=== PATIENT | female | born 1935 | race Hispanic/Latino ===

== ENCOUNTER 2018-10-24 14:58 | Emergency (ER) | payer MEDICARE ==
[2018-10-24] MEDS ORDERED: IBUPROFEN 600 MG TABLET ONE (15:41)
== END 2018-10-24 17:30 | disposition home or self-care (01) ==
LOC: EDH 14:58
DX: S20.222A Contusion of left back wall of thorax, initial encounter (principal); E11.9 Type 2 diabetes mellitus without complications; I10 Essential (primary) hypertension; E78.5 Hyperlipidemia, unspecified; I25.10 Atherosclerotic heart disease of native coronary artery without angina pectoris; Z90.710 Acquired absence of both cervix and uterus; W01.0XXA Fall on same level from slipping, tripping and stumbling without subsequent striking against object, initial encounter; Y93.E1 Activity, personal bathing and showering; Y92.098 Other place in other non-institutional residence as the place of occurrence of the external cause; Y99.8 Other external cause status
CPT/HCPCS: 71101

== ENCOUNTER 2019-05-10 19:55 | Observation (INO) | payer MEDICARE ==
[~2019-05-10] VITALS: Ht 152.4 cm; Wt 68.0 kg
[2019-05-10] MEDS ORDERED: ACETAMINOPHEN-CODEINE 300/30MG TAB ONE (20:47)
[2019-05-10 21:19] LABS: ALBUMIN 2.1 g/dL (3.5-5.0); BILIRUBIN,TOTAL 0.3 mg/dL (0.2-1.0); CREATININE 2.9 mg/dL (0.5-1.5); POTASSIUM 4.1 mmol/L (3.5-5.1); TOTAL PROTEIN, SERUM 6.8 g/dL (6.0-8.3)
[2019-05-10 21:44] LABS: BASOPHILS % (AUTO) 0.6 % (0.0-5.0); EOSINOPHILS % (AUTO) 1.6 % (0.0-8.0); HEMATOCRIT 31.6 % (36-48); LYMPHOCYTES % (AUTO) 27.9 % (21.0-51.0); MEAN CORPUSCULAR HEMOGLOBIN 32.6 pg (27.0-33.0); MEAN CORPUSCULAR HGB CONC 33.6 g/dL (32.0-36.0); MEAN CORPUSCULAR VOLUME 96.9 fL (79-99); MONOCYTES % (AUTO) 11.2 % (3.0-13.0); NEUTROPHILS % (AUTO) 58.7 % (40.0-77.0); PLATELET COUNT (AUTO) 182 K/uL (130-400); RED BLOOD CELL COUNT(AUTO) 3.26 MIL/uL (4.00-5.50); RED CELL DISTRIBUTION WIDTH 14.9 % (11.0-15.5); WHITE BLOOD COUNT (AUTO) 6.6 K/uL (4.8-10.8)
[2019-05-10 22:18] LABS: APPEARANCE,URINE Clear (CLEAR); BILIRUBIN,URINE Negative (NEGATIVE); COLOR,URINE Yellow (YELLOW); GLUCOSE, URINE (UA) Negative (NEGATIVE); KETONES,URINE Negative (NEGATIVE); LEUKOCYTE ESTERASE ,URINE Trace (NEGATIVE); NITRATE,URINE Negative (NEGATIVE); OCCULT BLOOD,URINE Negative (NEGATIVE); PH,URINE 6.5 (5.0-8.0); PROTEIN,URINE Negative (NEGATIVE); UROBILINOGEN,URINE 0.2 mg/dL (0.2-1.0)
[2019-05-10 22:45] LABS: BACTERIA,URINE None Seen /HPF (None Seen); MUCUS,URINE Few LPF (None Seen); RBC,URINE None Seen /HPF (0-1); SQUAMOUS EPITHELIAL CELL,UR Rare /HPF (0-2); WBC,URINE 0-1 /HPF (0-1)
[2019-05-10] MEDS ORDERED: SODIUM CHLORIDE 0.9% 1000ML 1,000 ML IV ONE (22:49)
[2019-05-10] MEDS ORDERED: NITROGLYCERIN 0.4 MG SL TAB SL ONE (23:01)
[2019-05-10] MEDS ORDERED: FAMOTIDINE/PF 20 MG/2 ML VIAL IV ONE (23:38)
[2019-05-11] MEDS: SODIUM CHLORIDE 0.9% 1000ML 1,000 ML IV SCH ×2 (00:17→06:45)
[2019-05-11] MEDS ORDERED: ACETAMINOPHEN 325 MG TAB PO PRN ×2 (00:30)
[2019-05-11] MEDS ORDERED: ONDANSETRON HCL 4 MG/2 ML VIAL IV PRN (00:30)
[2019-05-11] MEDS ORDERED: LACTULOSE 20 GM/30 ML UDCUP PO PRN (00:30)
[2019-05-11] MEDS ORDERED: MORPHINE SULFATE 2 MG/ML 1ML SYG IV PRN (00:30)
[2019-05-11] MEDS ORDERED: NITROGLYCERIN 0.4 MG SL TAB SL PRN (00:30)
[2019-05-11] MEDS ORDERED: HYDRALAZINE HCL 20 MG/ML VIAL IV PRN (00:30)
[2019-05-11 03:30] VITALS: BP 138/73
[2019-05-11] MEDS ORDERED: FAMO40TA7 PO (04:14)
[2019-05-11] MEDS ORDERED: METF-446 PO (04:14)
[2019-05-11] MEDS ORDERED: CITA-106 PO (04:14)
[2019-05-11] MEDS ORDERED: LEVO50TA11 PO (04:15)
[2019-05-11] MEDS ORDERED: SIMV20TA6 PO (04:18)
[2019-05-11] MEDS ORDERED: PIOG30TA70 PO (04:18)
[2019-05-11] MEDS ORDERED: OLME1TAB44 PO (04:18)
[2019-05-11 06:17] LABS: BASOPHILS % (AUTO) 0.4 % (0.0-5.0); EOSINOPHILS % (AUTO) 0.4 % (0.0-8.0); HEMATOCRIT 28.1 % (36-48); LYMPHOCYTES % (AUTO) 22.3 % (21.0-51.0); MEAN CORPUSCULAR HEMOGLOBIN 32.9 pg (27.0-33.0); MEAN CORPUSCULAR HGB CONC 33.5 g/dL (32.0-36.0); MEAN CORPUSCULAR VOLUME 98.2 fL (79-99); MONOCYTES % (AUTO) 10.6 % (3.0-13.0); NEUTROPHILS % (AUTO) 66.3 % (40.0-77.0); NUCLEATED RED BLOOD CELLS 0.1 % (0.0-0.19); PLATELET COUNT (AUTO) 150 K/uL (130-400); RED BLOOD CELL COUNT(AUTO) 2.86 MIL/uL (4.00-5.50); RED CELL DISTRIBUTION WIDTH 14.4 % (11.0-15.5)
[2019-05-11] MEDS ORDERED: LEVOTHYROXINE 50 MCG TABLET PO SCH (06:30)
[2019-05-11 06:31] LABS: CREATININE 1.2 mg/dL (0.5-1.5); POTASSIUM 4.6 mmol/L (3.5-5.1)
[2019-05-11] MEDS: INSULIN HUMULIN R 100 UNIT/ML 3ML SQ SCH ×3 (06:34→16:30)
[2019-05-11 08:00] VITALS: BP 138/59
[2019-05-11] MEDS ORDERED: ENOXAPARIN SODIUM 30 MG/0.3 ML SQ SCH (09:00)
[2019-05-11] MEDS ORDERED: LOSARTAN 100 MG TABLET PO SCH (09:00)
[2019-05-11] MEDS ORDERED: CITALOPRAM 20 MG TABLET PO SCH (09:00)
[2019-05-11] MEDS ORDERED: HYDROCHLOROTHIAZIDE 25 MG TABLET PO SCH (09:00)
[2019-05-11] MEDS ORDERED: PIOGLITAZONE HCL 30 MG TAB PO SCH (09:00)
[2019-05-11] MEDS ORDERED: ASPIRIN 81MG TAB.CHEW PO SCH (09:00)
[2019-05-11] MEDS ORDERED: METOPROLOL TARTRATE 25 MG TAB PO SCH (09:00)
[2019-05-11] MEDS ORDERED: FAMOTIDINE 20MG TAB 20 MG TAB PO SCH (09:00)
--- NOTE | 2019-05-11 10:00 | NUR ---
Dr Castillo here to see patient; he looked at pt's xray film, he stated that she has a very minor fx on her right tibia, that she should wear a knee immobilizer in place for treatment and follow up with him in a week, weight bearing as tolerated; i applied knee immobilizer to pt's right knee, she tolerated it well and have instructed pt and family at bedside on its use. they all stated understanding.
[2019-05-11] MEDS ORDERED: BRINOS OD (10:03)
[2019-05-11] MEDS ORDERED: COMB5OS OD (10:03)
[2019-05-11] MEDS ORDERED: LATA7.5D OP (10:03)
[2019-05-11 11:57] VITALS: BP 112/46
[2019-05-11] MEDS ORDERED: BRINZOLAMIDE 1% 10ML DROPS.SUSP OD SCH (12:00)
[2019-05-11 16:00] VITALS: BP 130/53
[2019-05-11] MEDS ORDERED: LATANOPROST 2.5 ML DROPS OP SCH (17:00)
--- NOTE | 2019-05-11 17:10 | NUR ---
D/C PLAN CM spoke to pt regarding d/c planning. pt lives with daughter named Janelle. Family at bedside. Pt has provider that assists in care. Pt has cane and walker at home. CM advised family if wanting new walker, pt will need to obtain order from PCP. Verbalized understanding and states pt will f/u with PCP on Monday. No other questions or concerns verbalized. Plan to home. Addendum: 05/11/19 at 1711 by CORINA NGUYEN Amended: Links added.
--- NOTE | 2019-05-11 18:30 | NUR ---
pt and family stated understanding of all d/c instructions on after care for chest pain and tibia fx, pt's cardiac enzyme workup was normal and ecg normal; slight fx of tibia, pt given knee immobilizer to wear and told to follow up with dr Castillo. iv access removed and tele pack removed;
[2019-05-11] MEDS ORDERED: ATORVASTATIN CALCIUM 20 MG TABLET PO SCH (21:00)
[2019-05-12] MEDS ORDERED: TIMOLOL OD SCH (09:00)
[2019-05-12] MEDS ORDERED: BRIMONIDINE TARTRATE OD SCH (09:00)
== END 2019-05-11 19:00 | disposition home or self-care (01) ==
LOC: EDH 19:55 → EDHIP 05-11 00:17 → 4BH 05-11 03:20
PROVIDERS: ADMIT Hospitalist; ATTEND Hospitalist
DX: M25.461 Effusion, right knee (principal); R07.89 Other chest pain; N17.9 Acute kidney failure, unspecified; I10 Essential (primary) hypertension; E11.9 Type 2 diabetes mellitus without complications; E44.0 Moderate protein-calorie malnutrition; R11.10 Vomiting, unspecified; E78.5 Hyperlipidemia, unspecified; E03.9 Hypothyroidism, unspecified; F32.9 Major depressive disorder, single episode, unspecified; I25.10 Atherosclerotic heart disease of native coronary artery without angina pectoris; D64.9 Anemia, unspecified; Z90.49 Acquired absence of other specified parts of digestive tract; Z87.891 Personal history of nicotine dependence; Z90.710 Acquired absence of both cervix and uterus; Z79.84 Long term (current) use of oral hypoglycemic drugs; Z79.899 Other long term (current) drug therapy; W01.0XXA Fall on same level from slipping, tripping and stumbling without subsequent striking against object, initial encounter; Y93.89 Activity, other specified; Y92.000 Kitchen of unspecified non-institutional (private) residence as the place of occurrence of the external cause
CPT/HCPCS: 36415 ×2; 70450; 72125; 73562; 73700; 80048; 80053; 81001; 82948 ×4; 84484 ×2; 85025 ×2; 93005 ×2; 96360; 96361; 96372; 99284; G0378 ×19; J1650; J3490; J7030 ×2

== ENCOUNTER 2020-04-19 05:23 | Inpatient (IN) | payer MEDICARE ==
[~2020-04-19] VITALS: Ht 157.5 cm; Wt 63.7 kg
[~2020-04-19 05:23] MED LIST: BRINOS OD; CITA-106 PO; COMB5OS OD; FAMO40TA7 PO; LATA7.5D OP; LEVO50TA11 PO; METF-446 PO; OLME1TAB86 PO; PIOG30TA70 PO; SIMV-43 PO
[2020-04-19] MEDS ORDERED: DIAZEPAM 2 MG TAB ONE (05:49)
[2020-04-19] MEDS ORDERED: KETOROLAC TROMETHAMINE 15MG/ML ONE (05:49)
[2020-04-19] MEDS ORDERED: ASPIRIN 325 MG TABLET ONE (05:49)
[2020-04-19 05:58] LABS: BASOPHILS % (AUTO) 0.2 % (0.0-5.0); HEMATOCRIT 37.9 % (36-48); LYMPHOCYTES % (AUTO) 6.1 % (21.0-51.0); MEAN CORPUSCULAR HEMOGLOBIN 31.8 pg (27.0-33.0); MEAN CORPUSCULAR HGB CONC 33.8 g/dL (32.0-36.0); MEAN CORPUSCULAR VOLUME 94.3 fL (79-99); NEUTROPHILS % (AUTO) 88.6 % (40.0-77.0); PLATELET COUNT (AUTO) 240 K/uL (130-400); RED BLOOD CELL COUNT(AUTO) 4.02 MIL/uL (4.00-5.50); RED CELL DISTRIBUTION WIDTH 11.9 % (11.0-15.5); WHITE BLOOD COUNT (AUTO) 21.8 K/uL (4.8-10.8)
[2020-04-19 06:07] LABS: POTASSIUM 4.4 mmol/L (3.5-5.1)
[2020-04-19 06:12] LABS: ALBUMIN 4.3 g/dL (3.5-5.0); BILIRUBIN,TOTAL 0.3 mg/dL (0.2-1.0); TOTAL PROTEIN, SERUM 8.3 g/dL (6.0-8.3)
[2020-04-19 06:37] LABS: INR 0.92 (0.85-1.15); PARTIAL THROMBOPLASTIN TIME 21.7 SEC (26.3-35.5)
[2020-04-19] MEDS ORDERED: ZOSYN 3.375GM+NS 50ML 50 ML IV ONE ×2 (06:53→16:07)
[2020-04-19 07:12] LABS: APPEARANCE,URINE TURBID (CLEAR); BILIRUBIN,URINE NEGATIVE (NEGATIVE); COLOR,URINE YELLOW (YELLOW); GLUCOSE, URINE (UA) NEGATIVE (NEGATIVE); KETONES,URINE 5 mg/dL (NEGATIVE); LEUKOCYTE ESTERASE ,URINE TRACE (NEGATIVE); NITRATE,URINE NEGATIVE (NEGATIVE); OCCULT BLOOD,URINE TRACE-INTACT (NEGATIVE); PROTEIN,URINE NEGATIVE (NEGATIVE); UROBILINOGEN,URINE 0.2 mg/dL (0.2-1.0)
[2020-04-19] MEDS ORDERED: ONDANSETRON HCL 4 MG/2 ML VIAL IV PRN (07:15)
[2020-04-19] MEDS ORDERED: CEFTRIAXONE SODIUM 1 GM IV SCH (07:15)
[2020-04-19] MEDS ORDERED: ACETAMINOPHEN 325 MG TAB PO PRN ×2 (07:15)
[2020-04-19] MEDS ORDERED: MORPHINE SULFATE 2 MG/ML 1ML SYG IV PRN (07:15)
[2020-04-19] MEDS: SODIUM CHLORIDE 0.9% 1000ML 1,000 ML IV SCH ×2 (07:15→19:52)
[2020-04-19] MEDS ORDERED: NITROGLYCERIN 0.4 MG SL TAB SL PRN (07:15)
[2020-04-19 07:18] LABS: BACTERIA,URINE Many /HPF (None Seen); RBC,URINE None Seen /HPF (0-1); WBC,URINE 0-1 /HPF (0-1)
[2020-04-19] MEDS ORDERED: ONDANSETRON HCL 4 MG/2 ML VIAL ONE (10:54)
[2020-04-19] MEDS ORDERED: MAG HYDROX/AL HYDROX/SIMETH ES 30 ML SUSP UDCUP ONE (12:20)
[2020-04-19] MEDS ORDERED: PANTOPRAZOLE 40 MG/VIAL ONE (12:20)
[2020-04-19] MEDS: BENZONATATE 100 MG CAPSULE PO SCH ×2 (14:00→19:52)
[2020-04-19] MEDS: ZOSYN 3.375GM+NS 50ML 50 ML IV SCH ×2 (15:15→23:07)
--- NOTE | 2020-04-19 17:35 | NUR ---
RECEIVED FROM ED VIA STRETCHER ACCOMPANIED BY Irvin PENNINGTON RN. PT. AAOX3, RESP.'S EVEN AND UNLABORED. DENIES ANY CURRENT SOB, DENIES ANY CURRENT PAIN. ORIENTED TO ROOM AND SURROUNDINGS. CALL LIGHT WITHIN REACH, VERBALIZED ABILITY TO USE. BED LOW, SIDE RAILS UP X3.
[2020-04-19] MEDS: ENOXAPARIN SODIUM 40 MG/0.4 ML SYRINGE SQ SCH (17:50)
[2020-04-19] MEDS ORDERED: MAG HYDROX/AL HYDROX/SIMETH ES 30 ML SUSP UDCUP PO SCH (18:15)
--- NOTE | 2020-04-19 19:10 | NUR ---
DR. SANDRA MADE AWARE OF CONSULT; NO NEW ORDERS RECEIVED.
[2020-04-19 20:07] VITALS: BP 122/58
[2020-04-20] VITALS (7 sets, daily range): BP systolic 140–157; BP diastolic 47–71
[2020-04-20 06:10] LABS: BILIRUBIN,TOTAL 0.4 mg/dL (0.2-1.0); CREATININE 2.2 mg/dL (0.5-1.5); CRP QUANTITATIVE 18.8 mg/L (0.00-9.0); POTASSIUM 3.9 mmol/L (3.5-5.1); TOTAL PROTEIN, SERUM 6.8 g/dL (6.0-8.3)
[2020-04-20] MEDS: ZOSYN 3.375GM+NS 50ML 50 ML IV SCH ×3 (06:13→23:41)
[2020-04-20 07:08] LABS: BASOPHILS % (AUTO) 0.5 % (0.0-5.0); HEMATOCRIT 32.7 % (36-48); LYMPHOCYTES % (AUTO) 15.2 % (21.0-51.0); MEAN CORPUSCULAR HEMOGLOBIN 31.7 pg (27.0-33.0); MEAN CORPUSCULAR HGB CONC 32.7 g/dL (32.0-36.0); MEAN CORPUSCULAR VOLUME 96.7 fL (79-99); MONOCYTES % (AUTO) 8.6 % (3.0-13.0); NEUTROPHILS % (AUTO) 73.9 % (40.0-77.0); PLATELET COUNT (AUTO) 188 K/uL (130-400); RED BLOOD CELL COUNT(AUTO) 3.38 MIL/uL (4.00-5.50); RED CELL DISTRIBUTION WIDTH 12.4 % (11.0-15.5); WHITE BLOOD COUNT (AUTO) 10.6 K/uL (4.8-10.8)
[2020-04-20] MEDS: ENOXAPARIN SODIUM 40 MG/0.4 ML SYRINGE SQ SCH (08:25)
[2020-04-20] MEDS: BENZONATATE 100 MG CAPSULE PO SCH ×3 (08:25→19:57)
[2020-04-20] MEDS: PANTOPRAZOLE SODIUM 40 MG TABLET.DR PO SCH (08:25)
[2020-04-20] MEDS: SODIUM CHLORIDE 0.9% 1000ML 1,000 ML IV SCH ×2 (08:26→19:57)
[2020-04-20] MEDS: TIMOLOL MALEATE 0.5% 5 ML BOTTLE OD SCH (09:00)
[2020-04-20] MEDS: BRIMONIDINE TARTRATE 0.2% 5 ML BOTTLE OD SCH (09:00)
[2020-04-20] MEDS: AMLODIPINE BESYLATE 5 MG TAB PO SCH (10:11)
[2020-04-20] MEDS: LEVOTHYROXINE 50 MCG TABLET PO SCH (10:11)
[2020-04-20] MEDS: INSULIN HUMULIN R 100 UNIT/ML 3ML SQ SCH ×3 (11:30→19:57)
[2020-04-20] MEDS: DORZOLAMIDE HCL 2% 10ML DROPS OD SCH (12:00)
--- NOTE | 2020-04-20 14:25 | NUR ---
DC PLAN PATIENT LIVES WITH DAUGHTER. INDEPENDENT ABLE TO PERFORM ADL'S. PATIENT HAS NO SERVICES. DME BEDSIDE COMMODE. PLAN TO DC WITH DAUGHTER TO HOME. PHARMACY ON [address]. Addendum: 04/20/20 at 1427 by CAROLIN GODINEZ RN CM Amended: Links added.
[2020-04-21 04:49] LABS: BASOPHILS % (AUTO) 0.5 % (0.0-5.0); EOSINOPHILS % (AUTO) 2.3 % (0.0-8.0); HEMATOCRIT 31.1 % (36-48); LYMPHOCYTES % (AUTO) 20.7 % (21.0-51.0); MEAN CORPUSCULAR HEMOGLOBIN 32.2 pg (27.0-33.0); MEAN CORPUSCULAR HGB CONC 33.4 g/dL (32.0-36.0); MEAN CORPUSCULAR VOLUME 96.3 fL (79-99); MONOCYTES % (AUTO) 8.6 % (3.0-13.0); NEUTROPHILS % (AUTO) 67.3 % (40.0-77.0); PLATELET COUNT (AUTO) 180 K/uL (130-400); RED BLOOD CELL COUNT(AUTO) 3.23 MIL/uL (4.00-5.50); RED CELL DISTRIBUTION WIDTH 12.2 % (11.0-15.5); WHITE BLOOD COUNT (AUTO) 8.2 K/uL (4.8-10.8)
[2020-04-21 04:54] VITALS: BP 145/75
[2020-04-21] MEDS: INSULIN HUMULIN R 100 UNIT/ML 3ML SQ SCH ×3 (04:58→20:31)
[2020-04-21 05:17] LABS: ALANINE AMINOTRANSFERASE 48 U/L (12-78); ALBUMIN 2.8 g/dL (3.5-5.0); ASPARTATE AMINOTRANSFERASE 79 U/L (10-37); BILIRUBIN,TOTAL 0.4 mg/dL (0.2-1.0); CARBON DIOXIDE 30 mmol/L (21-32); CHLORIDE 107 mmol/L (101-111); CREATININE 1.8 mg/dL (0.5-1.5); GLOMERULAR FILTR. RATE CALC 29 mL/min (>60); GLUCOSE,RANDOM 82 mg/dL (70-105); LIPASE 410 U/L (114-286); POTASSIUM 3.9 mmol/L (3.5-5.1); SODIUM SERUM 140 mmol/L (136-145); THYROID STIMULATING HORMONE 0.99 uIU/mL (0.36-3.74); TOTAL PROTEIN, SERUM 6.4 g/dL (6.0-8.3); UREA NITROGEN, BLOOD 38 mg/dL (7-18)
[2020-04-21] MEDS: ZOSYN 3.375GM+NS 50ML 50 ML IV SCH ×2 (06:37→17:15)
[2020-04-21 08:00] VITALS: BP 143/64
[2020-04-21] MEDS: BENZONATATE 100 MG CAPSULE PO SCH ×3 (09:00→20:29)
[2020-04-21] MEDS: BRIMONIDINE TARTRATE 0.2% 5 ML BOTTLE OD SCH (09:00)
[2020-04-21] MEDS: ENOXAPARIN SODIUM 40 MG/0.4 ML SYRINGE SQ SCH (09:00)
[2020-04-21] MEDS: TIMOLOL MALEATE 0.5% 5 ML BOTTLE OD SCH (09:00)
[2020-04-21] MEDS: PANTOPRAZOLE SODIUM 40 MG TABLET.DR PO SCH (09:00)
[2020-04-21] MEDS: AMLODIPINE BESYLATE 5 MG TAB PO SCH (09:00)
[2020-04-21] MEDS: LEVOTHYROXINE 50 MCG TABLET PO SCH (09:00)
[2020-04-21] MEDS ORDERED: FLUCONAZOLE 100 MG TAB PO SCH (10:30)
[2020-04-21] MEDS: TERBINAFINE HCL 15 GM TUBE TP SCH ×2 (11:45→20:31)
[2020-04-21 12:00] VITALS: BP 144/82
[2020-04-21] MEDS: DORZOLAMIDE HCL 2% 10ML DROPS OD SCH (12:00)
[2020-04-21] MEDS: SODIUM CHLORIDE 0.9% 1000ML 1,000 ML IV SCH (12:35)
--- NOTE | 2020-04-21 15:05 | NUR ---
TRANSFER FROM 2ND FLOOR ADMITTED TO ROOM 326, REPORT WAS TAKEN BY CHRISTOPH ZARATE. NURSE . FAMILY MADE AWARE OF PT. TRANSFER AND LOCATION.
[2020-04-21 16:00] VITALS: BP 139/67
[2020-04-21] MEDS ORDERED: ZOSYN 3.375GM+NS 50ML 50 ML IV SCH (17:00)
--- NOTE | 2020-04-21 17:00 | NUR ---
CALLED DR. SANDRA RE ZOSYN BEING DISCONTINUED. ORDER TO RE GIVEN
[2020-04-21 20:00] VITALS: BP 144/59
[2020-04-21] MEDS: FERROUS SULFATE 325 MG TABLET.DR PO SCH (20:29)
[2020-04-22] VITALS (7 sets, daily range): BP systolic 137–171; BP diastolic 63–73
[2020-04-22] MEDS: SODIUM CHLORIDE 0.9% 1000ML 1,000 ML IV SCH ×2 (00:34→13:50)
[2020-04-22] MEDS: ZOSYN 3.375GM+NS 50ML 50 ML IV SCH ×4 (00:35→23:51)
[2020-04-22 05:41] LABS: BASOPHILS % (AUTO) 0.7 % (0.0-5.0); EOSINOPHILS % (AUTO) 3.3 % (0.0-8.0); HEMATOCRIT 30.8 % (36-48); LYMPHOCYTES % (AUTO) 22.8 % (21.0-51.0); MEAN CORPUSCULAR HGB CONC 32.8 g/dL (32.0-36.0); MEAN CORPUSCULAR VOLUME 97.5 fL (79-99); MONOCYTES % (AUTO) 9.9 % (3.0-13.0); NEUTROPHILS % (AUTO) 62.9 % (40.0-77.0); PLATELET COUNT (AUTO) 176 K/uL (130-400); RED BLOOD CELL COUNT(AUTO) 3.16 MIL/uL (4.00-5.50); RED CELL DISTRIBUTION WIDTH 12.3 % (11.0-15.5); WHITE BLOOD COUNT (AUTO) 6.7 K/uL (4.8-10.8)
[2020-04-22] MEDS: INSULIN HUMULIN R 100 UNIT/ML 3ML SQ SCH ×4 (05:42→20:00)
[2020-04-22 06:15] LABS: ALANINE AMINOTRANSFERASE 55 U/L (12-78); ALBUMIN 2.6 g/dL (3.5-5.0); ASPARTATE AMINOTRANSFERASE 42 U/L (10-37); BILIRUBIN,TOTAL 0.3 mg/dL (0.2-1.0); CARBON DIOXIDE 27 mmol/L (21-32); CHLORIDE 110 mmol/L (101-111); CREATININE 1.5 mg/dL (0.5-1.5); GLOMERULAR FILTR. RATE CALC 35 mL/min (>60); GLUCOSE,RANDOM 81 mg/dL (70-105); POTASSIUM 4.4 mmol/L (3.5-5.1); SODIUM SERUM 142 mmol/L (136-145); TOTAL PROTEIN, SERUM 6.2 g/dL (6.0-8.3); UREA NITROGEN, BLOOD 26 mg/dL (7-18)
[2020-04-22] MEDS: TIMOLOL MALEATE 0.5% 5 ML BOTTLE OD SCH (09:00)
[2020-04-22] MEDS: TERBINAFINE HCL 15 GM TUBE TP SCH ×2 (09:00→20:10)
[2020-04-22] MEDS: BRIMONIDINE TARTRATE 0.2% 5 ML BOTTLE OD SCH (09:00)
[2020-04-22] MEDS: DOCUSATE SODIUM 100 MG CAP PO SCH (09:00)
[2020-04-22] MEDS: BENZONATATE 100 MG CAPSULE PO SCH ×3 (09:00→20:09)
[2020-04-22] MEDS: ASCORBIC ACID 500 MG TAB PO SCH (10:06)
[2020-04-22] MEDS: PANTOPRAZOLE SODIUM 40 MG TABLET.DR PO SCH (10:07)
[2020-04-22] MEDS: FLUCONAZOLE 100 MG TAB PO SCH (10:08)
[2020-04-22] MEDS: BISACODYL 5 MG TABLET.DR PO SCH (10:09)
[2020-04-22] MEDS: FERROUS SULFATE 325 MG TABLET.DR PO SCH ×2 (10:09→20:09)
[2020-04-22] MEDS: AMLODIPINE BESYLATE 5 MG TAB PO SCH (10:10)
[2020-04-22] MEDS: LEVOTHYROXINE 50 MCG TABLET PO SCH (10:11)
[2020-04-22] MEDS: ENOXAPARIN SODIUM 40 MG/0.4 ML SYRINGE SQ SCH (10:13)
[2020-04-22] MEDS: ACETAMINOPHEN-CODEINE 300/30MG TAB PO PRN (10:48)
[2020-04-22] MEDS: DORZOLAMIDE HCL 2% 10ML DROPS OD SCH (12:00)
--- NOTE | 2020-04-22 13:27 | NUR ---
SPOKE TO DAUGHTER AT BEDSIDE- STATES PT LIVES WITH ANOTHER SISTER, AND IS BARELY MOBILE WITH A WALKER, HAS A LOT OF PAIN, EVEN BEFORE THIS FALL/FX. ADVISED HER THAT WE HAVE ORDERS FOR AMBULATION; DR. PEREZ SAID NO SURGICAL INTERVENTION, WILL APPLY BINDER AND ATTEMPT TO AMBULATE TO CHECK ON FALL/SAFETY RISK FOR DISCHARGE. DAUGHTER UPSET, STATES THAT IF PT HAS PAIN SHW SHOULD NOT BE MOVED TO GIVE HER EXCERCISE.. DTR HAS POOR UNDERSTANDING , ADVISED HER WE NEED PT EVAL FOR THE CHART TO DOCUMENT WHAT SHE CAN AND CANNOT DO 2/2/ TO HER PAIN Addendum: 04/22/20 at 1333 by TEE JAMES RN Amended: Links added.
[2020-04-22] MEDS ORDERED: MORPHINE SULFATE 2 MG/ML 1ML SYG IVP PRN (16:00)
[2020-04-23 04:00] VITALS: BP 140/68
[2020-04-23] MEDS: SODIUM CHLORIDE 0.9% 1000ML 1,000 ML IV SCH ×2 (04:50→19:50)
[2020-04-23] MEDS: ACETAMINOPHEN-CODEINE 300/30MG TAB PO PRN ×4 (05:37→17:42)
[2020-04-23 05:38] LABS: ALBUMIN 2.6 g/dL (3.5-5.0); BILIRUBIN,TOTAL 0.2 mg/dL (0.2-1.0); CREATININE 1.4 mg/dL (0.5-1.5); POTASSIUM 4.4 mmol/L (3.5-5.1); TOTAL PROTEIN, SERUM 6.2 g/dL (6.0-8.3)
[2020-04-23] MEDS: INSULIN HUMULIN R 100 UNIT/ML 3ML SQ SCH ×4 (05:44→21:00)
[2020-04-23 07:59] VITALS: BP 164/76
--- NOTE | 2020-04-23 08:30 | NUR ---
FAMILY pt son here at bedside ask to speak to me ,requests pt to be discharged by 1100 because he is taking her to primary care physician explained to son the physicians seeing her and what the plan of care is today pain management physician will see her today PT will evaluate pts activity to assess her need for rehab voices understanding
[2020-04-23] MEDS: TERBINAFINE HCL 15 GM TUBE TP SCH ×2 (09:00→21:00)
[2020-04-23] MEDS: TIMOLOL MALEATE 0.5% 5 ML BOTTLE OD SCH (09:00)
[2020-04-23] MEDS: BENZONATATE 100 MG CAPSULE PO SCH ×3 (09:00→21:40)
[2020-04-23] MEDS: DOCUSATE SODIUM 100 MG CAP PO SCH (09:10)
[2020-04-23] MEDS: BISACODYL 5 MG TABLET.DR PO SCH (09:11)
[2020-04-23] MEDS: FLUCONAZOLE 100 MG TAB PO SCH (09:11)
[2020-04-23] MEDS: FERROUS SULFATE 325 MG TABLET.DR PO SCH ×2 (09:13→21:40)
[2020-04-23] MEDS: AMLODIPINE BESYLATE 5 MG TAB PO SCH (09:13)
[2020-04-23] MEDS: PANTOPRAZOLE SODIUM 40 MG TABLET.DR PO SCH (09:15)
[2020-04-23] MEDS: LEVOTHYROXINE 50 MCG TABLET PO SCH (09:15)
[2020-04-23] MEDS: ASCORBIC ACID 500 MG TAB PO SCH (09:15)
[2020-04-23] MEDS: ENOXAPARIN SODIUM 40 MG/0.4 ML SYRINGE SQ SCH (09:22)
[2020-04-23] MEDS: ZOSYN 3.375GM+NS 50ML 50 ML IV SCH ×2 (09:23→17:33)
[2020-04-23 11:00] VITALS: BP 153/85
[2020-04-23] MEDS: BRIMONIDINE TARTRATE 0.2% 5 ML BOTTLE OD SCH (15:03)
[2020-04-23] MEDS: DORZOLAMIDE HCL 2% 10ML DROPS OD SCH (15:03)
[2020-04-23 15:43] LABS: INR 0.94 (0.85-1.15); PARTIAL THROMBOPLASTIN TIME 28.7 SEC (26.3-35.5); PROTHROMBIN TIME 10.2 SEC (9.6-11.6)
[2020-04-23 16:00] VITALS: BP 151/82
[2020-04-23 20:00] VITALS: BP 138/68
[2020-04-24] VITALS: BP 179/83
[2020-04-24] MEDS: ZOSYN 3.375GM+NS 50ML 50 ML IV SCH ×3 (00:36→17:15)
[2020-04-24 04:00] VITALS: BP 146/66
[2020-04-24 05:47] LABS: ALBUMIN 2.7 g/dL (3.5-5.0); BILIRUBIN,TOTAL 0.3 mg/dL (0.2-1.0); CREATININE 1.1 mg/dL (0.5-1.5); POTASSIUM 3.8 mmol/L (3.5-5.1); TOTAL PROTEIN, SERUM 6.4 g/dL (6.0-8.3)
[2020-04-24] MEDS: INSULIN HUMULIN R 100 UNIT/ML 3ML SQ SCH ×4 (07:30→21:00)
[2020-04-24 08:00] VITALS: BP 159/93
[2020-04-24] MEDS: TIMOLOL MALEATE 0.5% 5 ML BOTTLE OD SCH (09:00)
[2020-04-24] MEDS: TERBINAFINE HCL 15 GM TUBE TP SCH (09:00)
--- NOTE | 2020-04-24 10:35 | NUR ---
5 FR 2 LUMEN PICC INSERTED TO RIGHT BASILIC VEIN, USING ASEPTIC TECHNIQUE. CATHETER TRIMMED TO 41CM AND ADVANCED TO 38CM INTERNALLY AND 3CM LEFT EXTERNALLY. STERILE DRESSINGS INCLUDE BIOPATCH, SHERLOCK AND STAT ROLANDO AND PICC DRESSING APPLIED ASEPTICALLY. BOTH LUMENS HAVE GOOD BLOOD RETURN, PULSATILE FLUSHED AND CLAMPED. ARM CIRCUMFERENCE IS 33CM AT INSERTSION SITE. PT TOLERATED PROCEDURE WELL. (+) VPS BULLSEYE INDICATES PICC TIP IN LOWER 1/3 OF SVC OR AT CAJ AND PICC OK TO USE PER PROTOCOL.
[2020-04-24] MEDS: ASCORBIC ACID 500 MG TAB PO SCH (10:58)
[2020-04-24] MEDS: BISACODYL 5 MG TABLET.DR PO SCH (10:58)
[2020-04-24] MEDS: DOCUSATE SODIUM 100 MG CAP PO SCH (10:58)
[2020-04-24] MEDS: FLUCONAZOLE 100 MG TAB PO SCH (10:59)
[2020-04-24] MEDS: FERROUS SULFATE 325 MG TABLET.DR PO SCH ×2 (10:59→21:49)
[2020-04-24] MEDS: LEVOTHYROXINE 50 MCG TABLET PO SCH (10:59)
[2020-04-24] MEDS: AMLODIPINE BESYLATE 5 MG TAB PO SCH (10:59)
[2020-04-24] MEDS: PANTOPRAZOLE SODIUM 40 MG TABLET.DR PO SCH (10:59)
[2020-04-24 11:00] VITALS: BP 146/73
[2020-04-24] MEDS: BRIMONIDINE TARTRATE 0.2% 5 ML BOTTLE OD SCH (11:02)
[2020-04-24] MEDS: DORZOLAMIDE HCL 2% 10ML DROPS OD SCH (11:02)
[2020-04-24] MEDS: ENOXAPARIN SODIUM 40 MG/0.4 ML SYRINGE SQ SCH (11:11)
[2020-04-24] MEDS: BENZONATATE 100 MG CAPSULE PO SCH ×3 (11:23→21:49)
[2020-04-24] MEDS: SODIUM CHLORIDE 0.9% 1000ML 1,000 ML IV SCH (15:57)
[2020-04-24 16:04] VITALS: BP 154/71
--- NOTE | 2020-04-24 17:00 | NUR ---
DC TO [facility]IA EMS TRANSPORT YESTERDAY ORDERS FOR RFERRAL TO [facility] RECD YESTERDAY AND [facility] RECD FROM DAUGHTER SUSAN VIA PHONE, AND PATIENT IN ROOM, PKT SENT, VIANEY RAPID ORDERS TODAY PICC PLACED, DR. SANDRA FINAL ABX ORDERS; CONFIRMED WITH DTR SUSAN THAT [facility] FROM [facility] HAD SPOKEN TO HER AND MET W PATIENT AT BEDSIDE, COVID FORM AND PASSR AND FINAL MED REC EMAILED TO [facility], EMS FORMS COMPLETED, FAXED AND TAGGED ON CHART. DESI FUENTES / NURSE BLACK[place] AWARE Addendum: 04/24/20 at 1921 by TEE JAMES RN Amended: Links added.
--- NOTE | 2020-04-24 17:01 | NUR ---
CLARIFICATION- NOTE AT 1700 IS *PLAN * FOR DC
[2020-04-24] MEDS: ACETAMINOPHEN-CODEINE 300/30MG TAB PO PRN (18:42)
--- NOTE | 2020-04-24 23:40 | NUR ---
EMS HERE TO TRANSFER PATIENT TO COUNTS INCLUDE 234 BEDS AT THE [facility], SON HERE AT BEDSIDE. PATIENT AAOX3, DENIES PAIN, NO ACUTE DISTRESS NOTED. REMOVED PIV TO LEFT WRIST, LEFT ARM PICC LINE INTACT.
[2020-04-25] MEDS ORDERED: CALCITONIN 3.7 ML AEROSOL NS SCH (09:00)
== END 2020-04-24 23:38 | DRG 372 ==
LOC: EDH 05:23 → EDHIP 06:47 → 2AH 17:37 → 3DH 04-21 14:41
PROVIDERS: ADMIT Hospitalist; ATTEND Hospitalist
PROC: 02HV33Z Insertion of Infusion Device into Superior Vena Cava, Percutaneous Approach (ICD-10-PCS; principal; 2020-04-19)
DX: A04.9 Bacterial intestinal infection, unspecified (principal); N39.0 Urinary tract infection, site not specified; N17.9 Acute kidney failure, unspecified; M48.54XA Collapsed vertebra, not elsewhere classified, thoracic region, initial encounter for fracture; J98.11 Atelectasis; Z16.24 Resistance to multiple antibiotics; E86.1 Hypovolemia; Z20.828 Contact with and (suspected) exposure to other viral communicable diseases; E11.9 Type 2 diabetes mellitus without complications; I10 Essential (primary) hypertension; E78.5 Hyperlipidemia, unspecified; E03.9 Hypothyroidism, unspecified; F32.9 Major depressive disorder, single episode, unspecified; K44.9 Diaphragmatic hernia without obstruction or gangrene; F02.80 Dementia in other diseases classified elsewhere, unspecified severity, without behavioral disturbance, psychotic disturbance, mood disturbance, and anxiety; G30.9 Alzheimer's disease, unspecified; R13.10 Dysphagia, unspecified; M81.0 Age-related osteoporosis without current pathological fracture; E86.0 Dehydration; E66.9 Obesity, unspecified; I45.4 Nonspecific intraventricular block; R53.81 Other malaise; K57.90 Diverticulosis of intestine, part unspecified, without perforation or abscess without bleeding; Z68.25 Body mass index [BMI] 25.0-25.9, adult; Z90.49 Acquired absence of other specified parts of digestive tract; Z90.710 Acquired absence of both cervix and uterus; Z83.3 Family history of diabetes mellitus; Z80.9 Family history of malignant neoplasm, unspecified; Z82.0 Family history of epilepsy and other diseases of the nervous system; Z82.49 Family history of ischemic heart disease and other diseases of the circulatory system
CPT/HCPCS: 36415; 71045; 72128; 74176; 80053; 81001; 82550; 82948; 83540; 83550; 83605; 83690; 83880; 84145; 84443; 84484; 85025; 85378; 85610; 85730; 86140; 87040; 87088; 87426; 93005; 97039; C1894; C9113; G0378; J1650; J1885; J2405; J2543; J7030; U0003

== ENCOUNTER 2020-12-25 23:17 | Emergency (ER) | payer MEDICARE ==
[~2020-12-25] VITALS: Ht 152.4 cm; Wt 79.4 kg
[~2020-12-25 23:17] MED LIST changes: +OLME-11 PO; -OLME1TAB86 PO; +PANT40TA PO; +SUCR1TAB PO
[2020-12-25 23:30] VITALS: BP 165/69
[2020-12-25] MEDS ORDERED: ASPIRIN 325 MG TABLET PO ONE (23:45)
[2020-12-26 00:35] LABS: INR 0.97 (0.85-1.15); PROTHROMBIN TIME 10.6 SEC (9.6-11.6)
[2020-12-26 00:38] LABS: CARBON DIOXIDE 32 mmol/L (21-32); CHLORIDE 95 mmol/L (101-111); CREATININE 1.3 mg/dL (0.5-1.5); GLOMERULAR FILTR. RATE CALC 41 mL/min (>60); GLUCOSE,RANDOM 138 mg/dL (70-105); POTASSIUM 4.2 mmol/L (3.5-5.1); SODIUM SERUM 137 mmol/L (136-145); UREA NITROGEN, BLOOD 43 mg/dL (7-18)
[2020-12-26 00:41] LABS: BASOPHILS % (AUTO) 0.1 % (0.0-5.0); EOSINOPHILS % (AUTO) 0.1 % (0.0-8.0); HEMATOCRIT 35.8 % (36-48); LYMPHOCYTES % (AUTO) 8.8 % (21.0-51.0); MEAN CORPUSCULAR HGB CONC 33.2 g/dL (32.0-36.0); MEAN CORPUSCULAR VOLUME 96.2 fL (79-99); MONOCYTES % (AUTO) 7.9 % (3.0-13.0); NEUTROPHILS % (AUTO) 82.7 % (40.0-77.0); PLATELET COUNT (AUTO) 252 K/uL (130-400); RED BLOOD CELL COUNT(AUTO) 3.72 MIL/uL (4.00-5.50); RED CELL DISTRIBUTION WIDTH 13.2 % (11.0-15.5); WHITE BLOOD COUNT (AUTO) 13.4 K/uL (4.8-10.8)
[2020-12-26 00:47] LABS: B-TYPE NATRIURETIC PEPTIDE 95 pg/mL (0-100)
[2020-12-26] MEDS ORDERED: METOCLOPRAMIDE 10 MG/2 ML VIAL ONE (00:52)
[2020-12-26 00:53] LABS: ALANINE AMINOTRANSFERASE 18 U/L (12-78); ALBUMIN 3.6 g/dL (3.5-5.0); ASPARTATE AMINOTRANSFERASE 29 U/L (10-37); BILIRUBIN,TOTAL 0.6 mg/dL (0.2-1.0); CREATINE KINASE, TOTAL 85 U/L (21-232); LIPASE 296 U/L (114-286); MYOGLOBIN 142 ng/mL (10-92); TOTAL PROTEIN, SERUM 8.3 g/dL (6.0-8.3); TROPONIN I < 0.04 ng/mL (0.00-0.06)
[2020-12-26] MEDS ORDERED: PANTOPRAZOLE 40 MG/VIAL ONE (00:53)
[2020-12-26] MEDS ORDERED: ONDANSETRON HCL 4 MG/2 ML VIAL ONE (00:53)
[2020-12-26] MEDS ORDERED: ASPIRIN 325 MG TABLET ONE (00:53)
[2020-12-26] MEDS ORDERED: FAMOTIDINE/PF 20 MG/2 ML VIAL IV ONE ×2 (00:54→01:00)
[2020-12-26] MEDS ORDERED: SODIUM CHLORIDE 0.9% 500ML 500 ML IV ONE (00:55)
[2020-12-26 01:00] VITALS: BP 148/68
[2020-12-26] MEDS ORDERED: ONDANSETRON HCL 4 MG/2 ML VIAL IVP ONE (01:00)
[2020-12-26] MEDS ORDERED: METOCLOPRAMIDE 10 MG/2 ML VIAL IVP ONE (01:00)
[2020-12-26] MEDS ORDERED: PANTOPRAZOLE 40 MG/VIAL IVP SCH (01:00)
[2020-12-26] MEDS ORDERED: PANT40TA PO (02:15)
[2020-12-26] MEDS ORDERED: DICY20TA2 PO (02:15)
[2020-12-26] MEDS ORDERED: ONDA4TAB4 PO (02:15)
[2020-12-26 02:36] VITALS: BP 132/65
== END 2020-12-26 02:39 | disposition home or self-care (01) ==
LOC: EDH 23:50
DX: K29.70 Gastritis, unspecified, without bleeding (principal); E86.0 Dehydration; R11.2 Nausea with vomiting, unspecified; I10 Essential (primary) hypertension; E11.9 Type 2 diabetes mellitus without complications; E78.5 Hyperlipidemia, unspecified; Z79.84 Long term (current) use of oral hypoglycemic drugs; Z79.899 Other long term (current) drug therapy
CPT/HCPCS: 36415; 71045; 80053; 82550; 83690; 83874; 83880; 84484; 85025; 85610; 93005; 96374; 96375; 99285; C9113; J2405; J2765; J3490; J7040

== ENCOUNTER 2021-06-17 22:46 | Emergency (ER) | payer OTHER, MEDICARE ==
[~2021-06-17] VITALS: Ht 154.9 cm; Wt 72.6 kg
[~2021-06-17 22:46] MED LIST changes: +DICY20TA2 PO; +ONDA4TAB4 PO
[2021-06-17] MEDS ORDERED: ORPHENADRINE CITRATE 30 MG/ML ML IV ONE (23:30)
[2021-06-17] MEDS ORDERED: KETOROLAC 15MG/ML VIAL (15MG/ML) IV ONE (23:30)
[2021-06-17] MEDS ORDERED: 0.9%NACL 1000ML 1,000 ML IV ONE (23:30)
[2021-06-18] MEDS ORDERED: ACETAMINOPHEN 500 MG TABLET PO ONE
[2021-06-18 00:13] LABS: CREATININE 1.7 mg/dL (0.5-1.5); POTASSIUM 4.2 mmol/L (3.5-5.1)
[2021-06-18 00:23] LABS: BASOPHILS % (AUTO) 0.4 % (0.0-5.0); EOSINOPHILS % (AUTO) 0.4 % (0.0-8.0); LYMPHOCYTES % (AUTO) 10.7 % (21.0-51.0); MEAN CORPUSCULAR HEMOGLOBIN 32.1 pg (27.0-33.0); MEAN CORPUSCULAR HGB CONC 33.4 g/dL (32.0-36.0); MEAN CORPUSCULAR VOLUME 96.1 fL (79-99); MONOCYTES % (AUTO) 11.9 % (3.0-13.0); PLATELET COUNT (AUTO) 242 K/uL (130-400); RED BLOOD CELL COUNT(AUTO) 3.33 MIL/uL (4.00-5.50); RED CELL DISTRIBUTION WIDTH 12.7 % (11.0-15.5); WHITE BLOOD COUNT (AUTO) 11.4 K/uL (4.8-10.8)
[2021-06-18] MEDS ORDERED: MELO7.5T12 PO (02:15)
[2021-06-18] MEDS ORDERED: ORPH-43 PO (02:15)
[2021-06-18 02:20] VITALS: BP 133/55
== END 2021-06-18 02:39 | disposition home or self-care (01) ==
LOC: EDH 22:46
DX: G44.209 Tension-type headache, unspecified, not intractable (principal); M62.830 Muscle spasm of back; I10 Essential (primary) hypertension; E86.1 Hypovolemia; K21.9 Gastro-esophageal reflux disease without esophagitis; M19.90 Unspecified osteoarthritis, unspecified site; M81.0 Age-related osteoporosis without current pathological fracture; Z79.1 Long term (current) use of non-steroidal anti-inflammatories (NSAID); Z79.84 Long term (current) use of oral hypoglycemic drugs; Z79.899 Other long term (current) drug therapy; R50.9 Fever, unspecified
CPT/HCPCS: 36415; 70450; 80048; 85025; 87804 ×2; 96361; 96374; 96375; 99284; J1885; J2360; J7030

== ENCOUNTER 2021-07-05 08:46 | Emergency (ER) | payer OTHER, MEDICARE ==
[~2021-07-05] VITALS: Ht 152.4 cm; Wt 63.5 kg
[~2021-07-05 08:46] MED LIST changes: +MELO7.5T12 PO; +ORPH-43 PO
[2021-07-05] MEDS ORDERED: KETOROLAC 15MG/ML VIAL (15MG/ML) IV SCH (09:00)
[2021-07-05 09:05] LABS: BASOPHILS % (AUTO) 0.4 % (0.0-5.0); EOSINOPHILS % (AUTO) 0.8 % (0.0-8.0); HEMATOCRIT 35.6 % (36-48); MEAN CORPUSCULAR HEMOGLOBIN 31.8 pg (27.0-33.0); MEAN CORPUSCULAR HGB CONC 32.6 g/dL (32.0-36.0); MEAN CORPUSCULAR VOLUME 97.5 fL (79-99); MONOCYTES % (AUTO) 6.8 % (3.0-13.0); NEUTROPHILS % (AUTO) 77.3 % (40.0-77.0); PLATELET COUNT (AUTO) 243 K/uL (130-400); RED BLOOD CELL COUNT(AUTO) 3.65 MIL/uL (4.00-5.50); RED CELL DISTRIBUTION WIDTH 13.8 % (11.0-15.5); WHITE BLOOD COUNT (AUTO) 14.5 K/uL (4.8-10.8)
[2021-07-05 09:17] LABS: INR 0.99 (0.85-1.15); PROTHROMBIN TIME 10.8 SEC (9.6-11.6)
[2021-07-05 09:18] LABS: CREATININE 1.5 mg/dL (0.5-1.5); PARTIAL THROMBOPLASTIN TIME 22.8 SEC (26.3-35.5); POTASSIUM 4.1 mmol/L (3.5-5.1)
[2021-07-05 09:20] LABS: ALBUMIN 3.7 g/dL (3.5-5.0); BILIRUBIN,TOTAL 0.2 mg/dL (0.2-1.0); TOTAL PROTEIN, SERUM 7.9 g/dL (6.0-8.3)
[2021-07-05] MEDS ORDERED: ACET1TAB25 PO (10:12)
[2021-07-05 10:38] VITALS: BP 164/88
== END 2021-07-05 10:39 | disposition home or self-care (01) ==
LOC: EDH 08:46
DX: S42.031A Displaced fracture of lateral end of right clavicle, initial encounter for closed fracture (principal); S09.90XA Unspecified injury of head, initial encounter; I10 Essential (primary) hypertension; K21.9 Gastro-esophageal reflux disease without esophagitis; M81.0 Age-related osteoporosis without current pathological fracture; Z79.899 Other long term (current) drug therapy; Z79.84 Long term (current) use of oral hypoglycemic drugs; Z79.1 Long term (current) use of non-steroidal anti-inflammatories (NSAID); W01.0XXA Fall on same level from slipping, tripping and stumbling without subsequent striking against object, initial encounter; Y93.89 Activity, other specified; Y92.89 Other specified places as the place of occurrence of the external cause; Y99.8 Other external cause status
CPT/HCPCS: 36415; 70450; 72125; 73030; 73060; 80053; 85025; 85610; 85730; 93005; 96374; 99285; J1885

== ENCOUNTER 2021-07-18 10:36 | Emergency (ER) | payer OTHER, MEDICARE ==
[~2021-07-18] VITALS: Ht 149.9 cm; Wt 68.0 kg
[~2021-07-18 10:36] MED LIST changes: +ACET1TAB25 PO; -BRINOS OD; +BRINOS OU; -COMB5OS OD; +COMB5OS OU; -LATA7.5D OP; +LATA7.5D OU
[2021-07-18] MEDS ORDERED: ACETAMINOPHEN 500 MG TABLET ONE (11:12)
[2021-07-18] MEDS ORDERED: KETOROLAC 30MG VIAL (30MG/ML) IM SCH (12:00)
[2021-07-18 13:13] VITALS: BP 113/74
== END 2021-07-18 13:08 | disposition home or self-care (01) ==
LOC: EDH 10:36
DX: U07.1 COVID-19 (principal); I10 Essential (primary) hypertension; K21.9 Gastro-esophageal reflux disease without esophagitis; M19.90 Unspecified osteoarthritis, unspecified site; M81.0 Age-related osteoporosis without current pathological fracture; Z79.1 Long term (current) use of non-steroidal anti-inflammatories (NSAID); Z79.84 Long term (current) use of oral hypoglycemic drugs; Z79.899 Other long term (current) drug therapy; Z90.49 Acquired absence of other specified parts of digestive tract
CPT/HCPCS: 87635; 87804 ×2; 96372; 99283; C9803; J1885

== ENCOUNTER 2021-07-23 17:45 | Inpatient (IN) | payer OTHER, MEDICARE ==
[~2021-07-23] VITALS: Ht 160 cm; Wt 59.1 kg
[2021-07-23] MEDS ORDERED: LACTATED RINGERS 1000ML 1,000 ML IV ONE (18:30)
[2021-07-23] MEDS ORDERED: ONDANSETRON 4MG INJ IVP ONE (18:30)
[2021-07-23 19:09] LABS: BASOPHILS % (AUTO) 0.1 % (0.0-5.0); EOSINOPHILS % (AUTO) 0.4 % (0.0-8.0); HEMATOCRIT 36.1 % (36-48); MEAN CORPUSCULAR HEMOGLOBIN 31.3 pg (27.0-33.0); MEAN CORPUSCULAR HGB CONC 32.4 g/dL (32.0-36.0); MEAN CORPUSCULAR VOLUME 96.5 fL (79-99); NEUTROPHILS % (AUTO) 78.1 % (40.0-77.0); PLATELET COUNT (AUTO) 197 K/uL (130-400); RED BLOOD CELL COUNT(AUTO) 3.74 MIL/uL (4.00-5.50); RED CELL DISTRIBUTION WIDTH 13.7 % (11.0-15.5); WHITE BLOOD COUNT (AUTO) 7.6 K/uL (4.8-10.8)
[2021-07-23 19:32] LABS: CREATININE 1.3 mg/dL (0.5-1.5); POTASSIUM 4.6 mmol/L (3.5-5.1)
[2021-07-23 19:36] LABS: ALBUMIN 3.5 g/dL (3.5-5.0); BILIRUBIN,TOTAL 0.2 mg/dL (0.2-1.0); TOTAL PROTEIN, SERUM 7.8 g/dL (6.0-8.3)
[2021-07-23] MEDS ORDERED: ONDANSETRON 4MG INJ ONE (21:44)
[2021-07-23] MEDS ORDERED: MORPHINE 4 MG SYG ONE (23:10)
[2021-07-23] MEDS ORDERED: ACETAMINOPHEN 325 MG TAB PO PRN (23:30)
[2021-07-23] MEDS ORDERED: MORPHINE 2 MG SYG IV PRN (23:30)
[2021-07-23] MEDS ORDERED: LACTATED RINGERS 1000ML 1,000 ML IV SCH (23:30)
[2021-07-23] MEDS ORDERED: MORPHINE 4 MG SYG IV ONE (23:30)
[2021-07-23] MEDS ORDERED: MORPHINE 4 MG SYG IV PRN (23:30)
[2021-07-24 00:54] LABS: APPEARANCE,URINE Clear (CLEAR); BILIRUBIN,URINE Negative (NEGATIVE); COLOR,URINE Yellow (YELLOW); GLUCOSE, URINE (UA) Negative (NEGATIVE); KETONES,URINE Trace mg/dL (NEGATIVE); LEUKOCYTE ESTERASE ,URINE Trace (NEGATIVE); NITRATE,URINE Negative (NEGATIVE); OCCULT BLOOD,URINE Negative (NEGATIVE); PROTEIN,URINE Trace mg/dL (NEGATIVE); UROBILINOGEN,URINE 0.2 mg/dL (0.2-1.0)
[2021-07-24 00:58] LABS: BACTERIA,URINE None Seen /HPF (None Seen); RBC,URINE None Seen /HPF (0-1); WBC,URINE None Seen /HPF (0-1)
[2021-07-24] MEDS: ONDANSETRON 4MG INJ IV PRN (01:14)
[2021-07-24] MEDS ORDERED: VITAMIN D PO (02:01)
[2021-07-24] MEDS ORDERED: HYDR-4060 PO (02:01)
[2021-07-24] MEDS ORDERED: ROSU5TAB12 PO (02:03)
[2021-07-24] MEDS ORDERED: PANT40TA54 PO (02:05)
[2021-07-24] MEDS ORDERED: OLME-7 PO (02:07)
[2021-07-24] MEDS ORDERED: CALC3.8S EN (02:10)
[2021-07-24] MEDS ORDERED: AZIT500T4 PO (02:10)
[2021-07-24 03:00] VITALS: BP 183/83
[2021-07-24 05:01] LABS: BASOPHILS % (AUTO) 0.1 % (0.0-5.0); EOSINOPHILS % (AUTO) 0.6 % (0.0-8.0); HEMATOCRIT 34.1 % (36-48); LYMPHOCYTES % (AUTO) 21.3 % (21.0-51.0); MEAN CORPUSCULAR HEMOGLOBIN 31.5 pg (27.0-33.0); MEAN CORPUSCULAR HGB CONC 32.3 g/dL (32.0-36.0); MEAN CORPUSCULAR VOLUME 97.7 fL (79-99); MONOCYTES % (AUTO) 12.2 % (3.0-13.0); NEUTROPHILS % (AUTO) 65.5 % (40.0-77.0); PLATELET COUNT (AUTO) 191 K/uL (130-400); RED BLOOD CELL COUNT(AUTO) 3.49 MIL/uL (4.00-5.50); RED CELL DISTRIBUTION WIDTH 13.6 % (11.0-15.5); WHITE BLOOD COUNT (AUTO) 6.7 K/uL (4.8-10.8)
[2021-07-24 05:09] LABS: CREATININE 1.2 mg/dL (0.5-1.5); MAGNESIUM 1.5 mg/dL (1.80-2.40); PHOSPHORUS 2.9 mg/dL (2.5-4.9); POTASSIUM 4.2 mmol/L (3.5-5.1)
[2021-07-24 07:20] VITALS: BP 162/58
[2021-07-24] MEDS ORDERED: LEVOTHYROXINE 50 MCG TABLET PO SCH (09:00)
[2021-07-24] MEDS: PANTOPRAZOLE 40 MG TAB DR PO SCH (09:00)
[2021-07-24] MEDS ORDERED: ATORVASTATIN 10 MG TABLET PO SCH (09:00)
[2021-07-24] MEDS ORDERED: FAMOTIDINE 20MG VIAL IV SCH (09:00)
[2021-07-24] MEDS: ENOXAPARIN SODIUM 30 MG/0.3 ML SQ SCH (09:01)
[2021-07-24] MEDS: CITALOPRAM 20 MG TABLET PO SCH (09:30)
[2021-07-24] MEDS: HYDROCHLOROTHIAZIDE 25 MG TABLET PO SCH (09:30)
[2021-07-24] MEDS: LOSARTAN 100 MG TABLET PO SCH (09:30)
[2021-07-24] MEDS: CALCITONIN 3.7 ML AEROSOL NS SCH (09:31)
[2021-07-24] MEDS: TIMOLOL MALEATE 0.5% 5 ML BOTTLE OP SCH (09:32)
[2021-07-24] MEDS: BRIMONIDINE TARTRATE 0.2% 5 ML BOTTLE OU SCH (09:32)
[2021-07-24 11:15] VITALS: BP 146/68
[2021-07-24 15:15] VITALS: BP 122/49
[2021-07-24] MEDS ORDERED: LATANOPROST 2.5 ML DROPS OU SCH (17:00)
[2021-07-24 19:00] VITALS: BP 131/71
[2021-07-24] MEDS: ATORVASTATIN 10 MG TABLET PO SCH (20:24)
[2021-07-24] MEDS: LATANOPROST 2.5 ML DROPS OU SCH (20:32)
[2021-07-25] VITALS: BP 181/75
[2021-07-25 03:57] VITALS: BP 167/68
[2021-07-25] MEDS: LEVOTHYROXINE 50 MCG TABLET PO SCH (05:58)
[2021-07-25 07:03] LABS: BASOPHILS % (AUTO) 0.2 % (0.0-5.0); EOSINOPHILS % (AUTO) 1.6 % (0.0-8.0); HEMATOCRIT 33.5 % (36-48); LYMPHOCYTES % (AUTO) 37.1 % (21.0-51.0); MEAN CORPUSCULAR HEMOGLOBIN 30.5 pg (27.0-33.0); MEAN CORPUSCULAR HGB CONC 31.6 g/dL (32.0-36.0); MEAN CORPUSCULAR VOLUME 96.5 fL (79-99); MONOCYTES % (AUTO) 11.1 % (3.0-13.0); NEUTROPHILS % (AUTO) 49.6 % (40.0-77.0); PLATELET COUNT (AUTO) 202 K/uL (130-400); RED BLOOD CELL COUNT(AUTO) 3.47 MIL/uL (4.00-5.50); RED CELL DISTRIBUTION WIDTH 13.9 % (11.0-15.5); WHITE BLOOD COUNT (AUTO) 5.1 K/uL (4.8-10.8)
[2021-07-25 07:13] LABS: CREATININE 1.1 mg/dL (0.5-1.5); POTASSIUM 4.1 mmol/L (3.5-5.1)
[2021-07-25 07:15] VITALS: BP 152/68
[2021-07-25] MEDS: LOSARTAN 100 MG TABLET PO SCH (08:55)
[2021-07-25] MEDS: PANTOPRAZOLE 40 MG TAB DR PO SCH (08:55)
[2021-07-25] MEDS: HYDROCHLOROTHIAZIDE 25 MG TABLET PO SCH (08:55)
[2021-07-25] MEDS: CITALOPRAM 20 MG TABLET PO SCH (08:55)
[2021-07-25] MEDS: ENOXAPARIN SODIUM 30 MG/0.3 ML SQ SCH (08:56)
[2021-07-25] MEDS: TIMOLOL MALEATE 0.5% 5 ML BOTTLE OP SCH (10:57)
[2021-07-25] MEDS: CALCITONIN 3.7 ML AEROSOL NS SCH (10:57)
[2021-07-25] MEDS: BRIMONIDINE TARTRATE 0.2% 5 ML BOTTLE OU SCH (10:57)
[2021-07-25 11:15] VITALS: BP 113/77
[2021-07-25 15:10] VITALS: BP 137/82
[2021-07-25 19:00] VITALS: BP 152/77
[2021-07-25] MEDS: ATORVASTATIN 10 MG TABLET PO SCH (20:50)
[2021-07-25] MEDS: LATANOPROST 2.5 ML DROPS OU SCH (21:00)
[2021-07-26] VITALS (7 sets, daily range): BP systolic 127–185; BP diastolic 61–97
[2021-07-26] MEDS ORDERED: HYDRALAZINE 20MG/ML VIAL ONE (03:43)
[2021-07-26] MEDS: LEVOTHYROXINE 50 MCG TABLET PO SCH (03:51)
[2021-07-26] MEDS ORDERED: HYDRALAZINE 20MG/ML VIAL IV ONE (04:00)
[2021-07-26] MEDS: ONDANSETRON 4MG INJ IV PRN ×2 (04:44→09:56)
[2021-07-26] MEDS: HYDROCHLOROTHIAZIDE 25 MG TABLET PO SCH (08:54)
[2021-07-26] MEDS: CITALOPRAM 20 MG TABLET PO SCH (08:54)
[2021-07-26] MEDS: PANTOPRAZOLE 40 MG TAB DR PO SCH (08:54)
[2021-07-26] MEDS: LOSARTAN 100 MG TABLET PO SCH (08:54)
[2021-07-26] MEDS: ENOXAPARIN SODIUM 30 MG/0.3 ML SQ SCH (08:55)
[2021-07-26] MEDS: CALCITONIN 3.7 ML AEROSOL NS SCH (09:00)
[2021-07-26] MEDS: TIMOLOL MALEATE 0.5% 5 ML BOTTLE OP SCH (09:00)
[2021-07-26] MEDS: BRIMONIDINE TARTRATE 0.2% 5 ML BOTTLE OU SCH (09:00)
[2021-07-26] MEDS: LATANOPROST 2.5 ML DROPS OU SCH (19:56)
[2021-07-26] MEDS: ATORVASTATIN 10 MG TABLET PO SCH (19:56)
[2021-07-27 00:12] VITALS: BP 138/77
[2021-07-27 04:12] VITALS: BP 147/78
[2021-07-27] MEDS: LEVOTHYROXINE 50 MCG TABLET PO SCH (06:00)
[2021-07-27 06:06] LABS: BASOPHILS % (AUTO) 0.2 % (0.0-5.0); EOSINOPHILS % (AUTO) 0.2 % (0.0-8.0); HEMATOCRIT 37.4 % (36-48); LYMPHOCYTES % (AUTO) 23.4 % (21.0-51.0); MEAN CORPUSCULAR HEMOGLOBIN 31.1 pg (27.0-33.0); MEAN CORPUSCULAR HGB CONC 32.9 g/dL (32.0-36.0); MEAN CORPUSCULAR VOLUME 94.4 fL (79-99); MONOCYTES % (AUTO) 10.5 % (3.0-13.0); PLATELET COUNT (AUTO) 276 K/uL (130-400); RED BLOOD CELL COUNT(AUTO) 3.96 MIL/uL (4.00-5.50); RED CELL DISTRIBUTION WIDTH 13.8 % (11.0-15.5); WHITE BLOOD COUNT (AUTO) 8.9 K/uL (4.8-10.8)
[2021-07-27 06:28] LABS: ALBUMIN 3.4 g/dL (3.5-5.0); BILIRUBIN,TOTAL 0.5 mg/dL (0.2-1.0); CREATININE 1.4 mg/dL (0.5-1.5); POTASSIUM 3.6 mmol/L (3.5-5.1); TOTAL PROTEIN, SERUM 7.7 g/dL (6.0-8.3)
[2021-07-27 08:00] VITALS: BP 152/76
[2021-07-27] MEDS: HYDROCHLOROTHIAZIDE 25 MG TABLET PO SCH (09:05)
[2021-07-27] MEDS: LOSARTAN 100 MG TABLET PO SCH (09:05)
[2021-07-27] MEDS: CITALOPRAM 20 MG TABLET PO SCH (09:05)
[2021-07-27] MEDS: ENOXAPARIN SODIUM 30 MG/0.3 ML SQ SCH (09:06)
[2021-07-27] MEDS: PANTOPRAZOLE 40 MG TAB DR PO SCH (09:06)
[2021-07-27] MEDS: CALCITONIN 3.7 ML AEROSOL NS SCH (09:08)
[2021-07-27] MEDS: BRIMONIDINE TARTRATE 0.2% 5 ML BOTTLE OU SCH (09:08)
[2021-07-27] MEDS: TIMOLOL MALEATE 0.5% 5 ML BOTTLE OP SCH (09:08)
[2021-07-27 12:00] VITALS: BP 98/55
[2021-07-27 16:00] VITALS: BP 104/59
[2021-07-27] MEDS: ATORVASTATIN 10 MG TABLET PO SCH (19:57)
[2021-07-27] MEDS: LATANOPROST 2.5 ML DROPS OU SCH (20:00)
[2021-07-27 20:20] VITALS: BP 111/45
[2021-07-28 00:20] VITALS: BP 138/58
[2021-07-28 04:20] VITALS: BP 130/63
[2021-07-28] MEDS: LEVOTHYROXINE 50 MCG TABLET PO SCH (05:10)
[2021-07-28 09:16] VITALS: BP 102/54
[2021-07-28] MEDS: HYDROCHLOROTHIAZIDE 25 MG TABLET PO SCH (10:23)
[2021-07-28] MEDS: CITALOPRAM 20 MG TABLET PO SCH (10:23)
[2021-07-28] MEDS: PANTOPRAZOLE 40 MG TAB DR PO SCH (10:23)
[2021-07-28] MEDS: LOSARTAN 100 MG TABLET PO SCH (10:23)
[2021-07-28] MEDS: ENOXAPARIN SODIUM 30 MG/0.3 ML SQ SCH (10:24)
[2021-07-28] MEDS: CALCITONIN 3.7 ML AEROSOL NS SCH (10:24)
[2021-07-28] MEDS: BRIMONIDINE TARTRATE 0.2% 5 ML BOTTLE OU SCH (10:24)
[2021-07-28] MEDS: TIMOLOL MALEATE 0.5% 5 ML BOTTLE OP SCH (10:24)
[2021-07-28 12:00] VITALS: BP 123/70
[2021-07-28 17:43] VITALS: BP 131/63
[2021-07-28 19:00] VITALS: BP 149/63
[2021-07-28] MEDS: ATORVASTATIN 10 MG TABLET PO SCH (20:50)
[2021-07-28] MEDS: LATANOPROST 2.5 ML DROPS OU SCH (20:59)
[2021-07-29] VITALS: BP 120/57
== END 2021-07-29 01:46 | DRG 555 ==
LOC: EDH 17:45 → OBSVTOIN 23:08 → EDHIP 23:08 → 4BH 07-24 02:37
PROVIDERS: ADMIT Hospitalist; ATTEND Internal Medicine
DX: M25.511 Pain in right shoulder (principal); U07.1 COVID-19; E11.22 Type 2 diabetes mellitus with diabetic chronic kidney disease; N18.30 Chronic kidney disease, stage 3 unspecified; M19.90 Unspecified osteoarthritis, unspecified site; K21.9 Gastro-esophageal reflux disease without esophagitis; F41.9 Anxiety disorder, unspecified; I12.9 Hypertensive chronic kidney disease with stage 1 through stage 4 chronic kidney disease, or unspecified chronic kidney disease; F03.90 Unspecified dementia, unspecified severity, without behavioral disturbance, psychotic disturbance, mood disturbance, and anxiety; M81.0 Age-related osteoporosis without current pathological fracture; I25.10 Atherosclerotic heart disease of native coronary artery without angina pectoris; Z90.49 Acquired absence of other specified parts of digestive tract; Z90.710 Acquired absence of both cervix and uterus; Z83.3 Family history of diabetes mellitus; Z82.49 Family history of ischemic heart disease and other diseases of the circulatory system; Z82.0 Family history of epilepsy and other diseases of the nervous system
CPT/HCPCS: 36415; 70450; 71045; 74018; 76705; 80048; 80053; 81001; 83690; 83735; 84100; 84484; 85025; 86140; 87635; 92610; 93005; 97039; A4565; G0378; J0360; J1650; J2270; J2405; J3490

== ENCOUNTER 2021-08-09 17:16 | Emergency (ER) | payer OTHER, MEDICARE ==
[~2021-08-09] VITALS: Ht 149.9 cm; Wt 68.0 kg
[~2021-08-09 17:16] MED LIST changes: -ACET1TAB25 PO; +AZIT500T4 PO; +CALC3.8S EN; -DICY20TA2 PO; -FAMO40TA7 PO; +HYDR-4060 PO; -MELO7.5T12 PO; -METF-446 PO; -OLME-11 PO; +OLME-7 PO; -ONDA4TAB4 PO; -ORPH-43 PO; -PANT40TA PO; +PANT40TA54 PO; -PIOG30TA70 PO; +ROSU5TAB12 PO; -SIMV-43 PO; -SUCR1TAB PO; +VITAMIN D PO
[2021-08-09 17:20] VITALS: BP 124/72
[2021-08-09] MEDS ORDERED: MORPHINE 2 MG SYG IVP ONE (19:00)
[2021-08-09] MEDS ORDERED: ONDANSETRON 4MG INJ IVP ONE (19:00)
[2021-08-09 19:18] LABS: BASOPHILS % (AUTO) 0.3 % (0.0-5.0); EOSINOPHILS % (AUTO) 0.7 % (0.0-8.0); HEMATOCRIT 36.3 % (36-48); LYMPHOCYTES % (AUTO) 14.5 % (21.0-51.0); MEAN CORPUSCULAR HEMOGLOBIN 30.8 pg (27.0-33.0); MEAN CORPUSCULAR HGB CONC 33.1 g/dL (32.0-36.0); MEAN CORPUSCULAR VOLUME 93.1 fL (79-99); MONOCYTES % (AUTO) 8.1 % (3.0-13.0); NEUTROPHILS % (AUTO) 75.7 % (40.0-77.0); PLATELET COUNT (AUTO) 240 K/uL (130-400); RED CELL DISTRIBUTION WIDTH 13.3 % (11.0-15.5); WHITE BLOOD COUNT (AUTO) 12.1 K/uL (4.8-10.8)
[2021-08-09 19:27] LABS: CREATININE 1.7 mg/dL (0.5-1.5); POTASSIUM 3.6 mmol/L (3.5-5.1)
[2021-08-09 19:36] LABS: ALBUMIN 3.3 g/dL (3.5-5.0); BILIRUBIN,TOTAL 0.4 mg/dL (0.2-1.0); CRP QUANTITATIVE 46.4 mg/L (0.00-9.0); TOTAL PROTEIN, SERUM 8.3 g/dL (6.0-8.3)
[2021-08-09] MEDS ORDERED: AMOX-429 PO (19:58)
[2021-08-09] MEDS ORDERED: ACET-2247 PO (19:58)
== END 2021-08-09 20:40 | disposition home or self-care (01) ==
LOC: EDH 17:16
DX: S42.031A Displaced fracture of lateral end of right clavicle, initial encounter for closed fracture (principal); S00.83XA Contusion of other part of head, initial encounter; J32.4 Chronic pansinusitis; E78.00 Pure hypercholesterolemia, unspecified; F32.A Depression, unspecified; I10 Essential (primary) hypertension; M81.0 Age-related osteoporosis without current pathological fracture; Z90.49 Acquired absence of other specified parts of digestive tract; Z79.899 Other long term (current) drug therapy; W18.39XA Other fall on same level, initial encounter; Y93.89 Activity, other specified; Y92.89 Other specified places as the place of occurrence of the external cause; Y99.8 Other external cause status
CPT/HCPCS: 36415; 70450; 70486; 71045; 72125; 73030; 80053; 84484; 85025; 86140; 96374; 96375; 99285; J2405